=== PATIENT | female | born 1945 | race Caucasian/White ===

== ENCOUNTER 2018-08-11 10:57 | Outpatient (CLI) | payer MEDICARE | END 2018-08-11 10:58 | disposition home or self-care (01) | LOC: BICMAMMO 10:57 | PROVIDERS: ATTEND Family Medicine | DX: Z12.31 Encounter for screening mammogram for malignant neoplasm of breast (principal); Z85.3 Personal history of malignant neoplasm of breast | CPT/HCPCS: 77063; 77067 ==

== ENCOUNTER 2019-06-21 06:50 | Day surgery (SDC) | payer MEDICARE ==
[2019-06-20 08:54] VITALS: BMI 29.6
--- NOTE | 2019-06-21 07:42 | HP ---
HISTORY OF PRESENT ILLNESS: Ms. Pierce is a very pleasant 74-year-old female, comes to the ED because of dysphagia to solid foods. The patient is undergoing endoscopy because of the above reason. ALLERGIES: 1. PENICILLIN. 2. LEVAQUIN. 3. CODEINE. SOCIAL HISTORY: The patient does not smoke. Drinks alcohol socially. MEDICAL ILLNESSES: 1. Chronic acid reflux. 2. Hypertension. 3. Hypothyroidism. 4. Hyperlipidemia. 5. Bilateral knee replacement. 6. Fundoplication for acid reflux. 7. Hysterectomy. 8. Right vasectomy. 9. Pelvic floor reconstruction . PHYSICAL EXAMINATION: GENERAL: Appears comfortable. VITAL SIGNS: Her , pulse is 72, blood pressure is 130/70. CARDIOVASCULAR: First and second heart sounds. LUNGS: Clear. ABDOMEN: Soft. No tenderness. No masses. IMPRESSION: Dysphagia, acid reflex . PLAN: EGD. Job ID: [id number] MTDD
--- NOTE | 2019-06-21 15:30 | OP ---
DATE OF PROCEDURE: 06/21/2019 OPERATIVE PROCEDURE: 1. Esophagogastroduodenoscopy with biopsy. 2. Esophageal dilation with a 48-D[place]iboutian Gama dilator. PREOPERATIVE DIAGNOSES: A 74-year-old female with chronic acid reflux , dyspepsia, previous fundoplication. The patient presents with dyspepsia and also gets dysphagia to solid food. POSTOPERATIVE DIAGNOSES: 1. Esophagitis, distal esophagus, erosion. 2. No definite esophageal narrowing seen. 3. Previous fundoplication. 4. Antral gastritis, erosion. DESCRIPTION OF PROCEDURE: The patient was placed on her left lateral position and was given sedation by Anesthesia Department. A Pentax video gastroscope under direct vision passed down the oropharynx, past the upper esophageal sphincter into the distal esophagus. The esophageal mucosa appeared normal over the upper two-thirds. Over the distal esophagus, the patient had esophagitis. Also, linear erosion seen. The patient has had previous fundoplication. At GE junction, the esophagus was not narrrowed and the scope which is 38+ [place]ib[place]ian in diameter passed down with no resistance. Retroflexion failed to show any pathology in the fundus or cardia. In the gastric body, no pathology seen. The gastric antrum shows antral erosions and gastritis. In the duodenal bulb, descending duodenum, no pathology seen. Biopsy obtained from the gastric antrum and gastric body. Also, biopsy obtained in the distal esophagus. The scope was removed. Because of history of dysphagia, a 48-D[place]ib[place]ian Gama dilation was done with no resistance. DISCHARGE PLANNING: This 74-year-old female with a history of longstanding acid reflux, history of dysphagia and dyspepsia. The EGD showed esophagitis and erosion and also gastritis. She had biopsy of the esophagus and stomach. DISCHARGE RECOMMENDATIONS: 1. The patient advised to call me if she develops any abdominal pain, chest pain , hematemesis, or melena. 2. Continue pantoprazole as before. 3. The patient will come back to me in 2 weeks for a follow up visit.. Job ID: [id number] [facility]
== END 2019-06-21 10:10 | disposition home or self-care (01) ==
LOC: SDC 06:50
PROVIDERS: ATTEND Internal Medicine Gastroenterology
PROC: 0DB68ZX Excision of Stomach, Via Natural or Artificial Opening Endoscopic, Diagnostic (ICD-10-PCS; principal; 2019-06-21)
PROC: 0DB78ZX Excision of Stomach, Pylorus, Via Natural or Artificial Opening Endoscopic, Diagnostic (ICD-10-PCS; 2019-06-21)
PROC: 0D758ZZ Dilation of Esophagus, Via Natural or Artificial Opening Endoscopic (ICD-10-PCS; 2019-06-21)
DX: K29.50 Unspecified chronic gastritis without bleeding (principal); K21.0 Gastro-esophageal reflux disease with esophagitis; I10 Essential (primary) hypertension; E03.9 Hypothyroidism, unspecified; E78.5 Hyperlipidemia, unspecified; Z88.0 Allergy status to penicillin; Z88.1 Allergy status to other antibiotic agents; Z88.5 Allergy status to narcotic agent; Z88.8 Allergy status to other drugs, medicaments and biological substances; Z79.899 Other long term (current) drug therapy
CPT/HCPCS: 88305; 88312; 88313

== ENCOUNTER 2019-08-26 09:43 | Outpatient (CLI) | payer MEDICARE ==
--- NOTE | 2019-08-26 10:35 | MMO ---
Bilateral MAMMO Bilat Screen [facility]. CLINICAL HISTORY: Patient is 74 years old and is seen for screening. The patient has no family history of breast cancer. The patient has a history of right Mastectomy - malignant. VIEWS: The views performed were: left craniocaudal with tomosynthesis and left mediolateral oblique with tomosynthesis. FILMS COMPARED: The present examination has been compared to prior imaging studies performed at [facility] on 02/14/2010, 09/12/2011 and 08/11/2018. This study has been interpreted with the assistance of computer-aided detection. MAMMOGRAM FINDINGS: There are scattered fibroglandular densities. There are no suspicious masses, suspicious calcifications, or new areas of architectural distortion. IMPRESSION: THERE IS NO MAMMOGRAPHIC EVIDENCE OF MALIGNANCY. A ROUTINE FOLLOW-UP MAMMOGRAM IN 1 YEAR IS RECOMMENDED. THE RESULTS OF THIS EXAM WERE SENT TO THE PATIENT. ACR BI-RADS Category 1 - Negative MAMMOGRAPHY NOTE: 1. A negative mammogram report should not delay a biopsy if a dominant of clinically suspicious mass is present. 2. Approximately 10% to 15% of breast cancers are not detected by mammography. 3. Adenosis and dense breasts may obscure an underlying neoplasm. Reported by: HERMINIO FLOREZ MD Electonically Signed: [id number]
== END 2019-08-26 09:44 | disposition home or self-care (01) ==
LOC: BICMAMMO 09:43
PROVIDERS: ATTEND Family Medicine
DX: Z12.31 Encounter for screening mammogram for malignant neoplasm of breast (principal); Z90.11 Acquired absence of right breast and nipple
CPT/HCPCS: 77063; 77067

== ENCOUNTER 2020-08-27 13:23 | Outpatient (CLI) | payer MEDICARE ==
--- NOTE | 2020-08-27 14:12 | BD ---
BONE DENSITOMETRY: Date: 08/27/2020 HISTORY: Postmenopausal screening. FINDINGS: Lumbar Spine: BMD (g/cm2) L1 1.100 T-Score: 1.0 L2 1.139 T-Score: 1.0 L3 1.042 T-Score: -0.4 L4 1.069 T-Score: 0.1 Total 1.087 T-Score: 0.4 Left Femoral Neck: 0.669 T-Score: -1.6 Total Femur: 0.994 T-Score: 0.4 IMPRESSION: 1. Bone mineral density of the lumbar spine is within normal range. 2. Bone mineral density of the femoral neck indicate osteopenia. POS: AH
--- NOTE | 2020-08-27 14:13 | MMO ---
Bilateral MAMMO Bilat Screen [facility]. CLINICAL HISTORY: Patient is 75 years old and is seen for screening. The patient has no family history of breast cancer. The patient has a history of right Mastectomy - malignant. VIEWS: The views performed were: bilateral craniocaudal with tomosynthesis and bilateral mediolateral oblique with tomosynthesis. FILMS COMPARED: The present examination has been compared to prior imaging studies performed at [facility] on 02/14/2010, 09/12/2011, 08/11/2018 and 08/26/2019. This study has been interpreted with the assistance of computer-aided detection. MAMMOGRAM FINDINGS: There are scattered fibroglandular densities. There are no suspicious masses, suspicious calcifications, or new areas of architectural distortion. IMPRESSION: THERE IS NO MAMMOGRAPHIC EVIDENCE OF MALIGNANCY. A ROUTINE FOLLOW-UP MAMMOGRAM IN 1 YEAR IS RECOMMENDED. THE RESULTS OF THIS EXAM WERE SENT TO THE PATIENT. ACR BI-RADS Category 1 - Negative MAMMOGRAPHY NOTE: 1. A negative mammogram report should not delay a biopsy if a dominant of clinically suspicious mass is present. 2. Approximately 10% to 15% of breast cancers are not detected by mammography. 3. Adenosis and dense breasts may obscure an underlying neoplasm. Reported by: HERMINIO FLOREZ MD Electonically Signed: [id number]
== END 2020-08-27 13:24 | disposition home or self-care (01) ==
LOC: BICMAMMO 13:23
PROVIDERS: ATTEND Family Medicine
DX: Z12.31 Encounter for screening mammogram for malignant neoplasm of breast (principal); Z13.820 Encounter for screening for osteoporosis; M85.852 Other specified disorders of bone density and structure, left thigh; Z90.11 Acquired absence of right breast and nipple; Z85.3 Personal history of malignant neoplasm of breast
CPT/HCPCS: 77063; 77067; 77080